=== PATIENT | male | born 1995 | race Caucasian/White ===

== ENCOUNTER → 2016-08-26 | Outpatient (CLI) | payer OTHER ==
[~2016-08-26] MED LIST: AMOX875T PO; HYDR1SOL30 PO; IBUP-1050 PO; PHEN-594 PO
[2016-08-26 18:10] LABS: ZZInitiateTest Complete
[2016-08-26 18:16] LABS: MANUAL MICROSCOPIC REQUIRED? NO; REVIEW REQ? NO
== END | disposition home or self-care (01) ==
LOC: C.LABPVFM 08:48
PROVIDERS: ATTEND Family Medicine
DX: R39.9 Unspecified symptoms and signs involving the genitourinary system (principal)

== ENCOUNTER → 2016-11-25 | Outpatient (CLI) | payer OTHER ==
[2016-11-28 13:34] LABS: CHLAMYDIA TRACH RNA*** NOT DETECTED (NOT DETECTED); GC (NEIS GONORRHOEAE)RNA** NOT DETECTED (NOT DETECTED)
== END | disposition home or self-care (01) ==
LOC: C.LABSPEC 17:06
PROVIDERS: ATTEND Nurse Practitioner Family
DX: R39.9 Unspecified symptoms and signs involving the genitourinary system (principal); Z11.3 Encounter for screening for infections with a predominantly sexual mode of transmission

== ENCOUNTER 2017-03-16 16:31 | Emergency (ER) | payer OTHER ==
[~2017-03-16] VITALS: Ht 188 cm; Wt 108.8 kg
[2017-03-16 16:39] VITALS: TEMP 36.9; Ht 188 cm; Wt 108.8 kg
--- NOTE | 2017-03-16 17:23 | EMERGENCY ROOM VISIT NOTE ---
History First contact with patient: 16:44 Chief Complaint: GI ASSESSMENT Stated Complaint: PAIN IN CHEST Nursing Triage Summary: pt states epigastric and chest pain with difficulty swallowing, pt states he has not been able to take much food by mouth for several days from the pain. Pt states overall not feeling well with ear pain. History of Present Illness The patient is a 21 year old male who presents to the Emergency Room with complaints of sternal chest burning/pressure. The patient reports that he first developed symptoms approximately 4 days ago. He states that the pain as a burning, tight pain in the center of his chest which radiates to his throat. The discomfort is constant and he rates the pain a 2/10. He saw his primary care this morning and was told it was probably GERD and started on Prilosec. He states the pain is aggravated by eating. The patient also reports that he has burning and itching in both of his ears as well as a mild cough which began 5 days ago. He has taken NyQuil for this. He denies sore throat or difficulty breathing. He denies any cardiac history or other medical problems. He does not smoke. He denies any family history of heart disease or gallbladder disease. Review of Systems A complete 10 point review of systems was reviewed with the patient with pertinent positives and negatives as per history of present illness. All else were negative. Past Medical/Surgical History Medical Problems: (1) Finger fracture, right (2) Laceration of finger nail bed Surgical Problems: (1) History of wisdom tooth extraction Family History Cancer Diabetes mellitus Hypertension Social History Smoking Status: Former Smoker Smokeless Tobacco Use: Yes Alcohol Use: occasionally Marital Status: single Housing Status: lives with family Occupation Status: employed Current/Historical Medications No Active Prescriptions or Reported Meds Physical Exam Vital Signs Date Time Temp Pulse Resp B/P (MAP) Pulse Ox O2 Delivery O2 Flow Rate FiO2 03/16/17 19:05 84 16 137/90 97 03/16/17 18:40 81 16 137/90 96 Room Air 03/16/17 16:39 36.9 102 16 131/91 97 Room Air Physical Exam VITALS: Vitals are noted on the nurse's note and reviewed by myself. Vital signs stable. GENERAL: This is a 21-year-old female, in no acute distress, nondiaphoretic, well-developed well-nourished. SKIN: The skin was without rashes. EARS: External auditory canals clear, tympanic membranes pearly meléndez without erythema or effusion bilaterally. EYES: Pupils equal round and reactive to light and accommodation. MOUTH: Mucous membranes moist. Tonsils are not enlarged. Pharynx without erythema or exudate. NECK: Supple without nuchal rigidity. No lymphadenopathy. HEART: Regular rate and rhythm without murmurs gallops or rubs. LUNGS: Clear to auscultation bilaterally without wheezes, rales or rhonchi. No retractions or accessory muscle use. ABDOMEN: Positive bowel sounds x 4. Soft, nondistended. There is tenderness to palpation in the epigastric region and right upper quadrant. No guarding or rebound tenderness. NEURO: Patient was alert and oriented to person place and time. Medical Decision & Procedures ER Provider Diagnostic Interpretation: CHEST ONE VIEW PORTABLE FINDINGS: Negative study IMPRESSION: Negative chest. ULTRASOUND RIGHT UPPER QUADRANT ABDOMEN IMPRESSION: 1. No acute sonographic abnormality is identified in the right upper quadrant. No gallstones are seen. 2. Hepatomegaly and hepatic steatosis. Laboratory Results 03/16/17 17:10 Red Blood Count 4.97, Mean Corpuscular Volume 86.1, Mean Corpuscular Hemoglobin 31.8, Mean Corpuscular Hemoglobin Concent 36.9 03/16/17 17:10 Test 03/16/17 17:10 03/16/17 17:35 White Blood Count 9.05 K/uL (4.8-10.8) Red Blood Count 4.97 M/uL (4.7-6.1) Hemoglobin 15.8 g/dL (14.0-18.0) Hematocrit 42.8 % (42-52) Mean Corpuscular Volume 86.1 fL (80-100) Mean Corpuscular Hemoglobin 31.8 pg (25-34) Mean Corpuscular Hemoglobin Concent 36.9 g/dl (32-36) Platelet Count 158 K/uL (130-400) Neutrophils % (Manual) 61.2 % Lymphocytes % (Manual) 15.5 % Variant Lymphocytes % (manual) 20.7 % Monocytes % (Manual) 2.6 % Neutrophils # (Manual) 5.54 K/uL (1.4-6.5) Total Absolute Neutrophils 5.54 K/uL (1.4-6.5) Lymphocytes # (Manual) 1.40 K/uL (1.2-3.4) Absolute Variant Lymphocytes 1.87 K/uL Total Absolute Lymphocytes 3.28 K/uL (1.2-3.4) Monocytes # (Manual) 0.24 K/uL (0.11-0.59) Red Blood Cell Morphology Unremarkable Anion Gap 9.0 mmol/L (3-11) Est Creatinine Clear Calc Drug Dose 135.9 ml/min Estimated GFR () 107.5 Estimated GFR (Non- 92.7 BUN/Creatinine Ratio 16.7 (10-20) Calcium Level 9.2 mg/dl (8.5-10.1) Total Bilirubin 1.5 mg/dl (0.2-1) Aspartate Amino Transf (AST/SGOT) 24 U/L (15-37) Alanine Aminotransferase (ALT/SGPT) 60 U/L (12-78) Alkaline Phosphatase 72 U/L (45-117) Troponin I < 0.015 ng/ml (0-0.045) Total Protein 7.9 gm/dl (6.4-8.2) Albumin 4.3 gm/dl (3.4-5.0) Globulin 3.6 gm/dl (2.5-4.0) Albumin/Globulin Ratio 1.2 (0.9-2) Lipase 90 U/L (73-393) Urine Color DK YELLOW Urine Appearance CLEAR (CLEAR) Urine pH 5.5 (4.5-7.5) Urine Specific [place] 1.031 (1.000-1.030) Urine Protein NEG (NEG) Urine Glucose (UA) NEG (NEG) Urine Ketones 2+ (NEG) Urine Occult Blood NEG (NEG) Urine Nitrite NEG (NEG) Urine Bilirubin NEG (NEG) Urine Urobilinogen NEG (NEG) Urine Leukocyte Esterase NEG (NEG) ECG Rate (beats per minute): 72 Rhythm: sinus with SA Findings: no acute ischemic change, no ectopy Change: no significant change Medical Decision Differential diagnosis includes acute coronary syndrome, pulmonary embolism, pneumothorax, pericarditis, myocarditis, endocarditis, anxiety, gallbladder disease, musculoskeletal pain, GERD, costochondritis, pneumonia, among others. The patient is a 21-year-old male who presents today complaining of chest discomfort. Labs revealed no leukocytosis, anemia or concerning electrolyte abnormalities. Troponin was not elevated. LFTs were within normal limits. EKG was interpreted by myself and showed a normal sinus rhythm with sinus arrhythmia. Gallbladder ultrasound was performed and did not show any evidence of gallbladder disease. The patient's symptoms seem consistent with GERD. Lifestyle changes were discussed with the patient. He was prescribed Prilosec by his primary care provider and was instructed to take this as prescribed. Based on the patient's presentation and work up, I feel the patient is stable for outpatient treatment. The patient was educated to return to the emergency department for any worsening of their current condition or new/concerning symptoms. He will follow up with his PCP. Medication Reconcilliation Current Medication List: was personally reviewed by me Blood Pressure Screening Patient's blood pressure: Normal blood pressure Impression Primary Impression: GERD (gastroesophageal reflux disease) Departure Information Dispostion Home / Self-Care Condition GOOD Prescriptions No Active Prescriptions or Reported Meds Referrals Sammie Clarke M.D. (PCP) Patient Instructions GERD Lifestyle Changes, My [facility] Additional Instructions You have been treated in the Emergency Department for your suspected Gastroesophageal Reflux Disease or GERD for short. Laboratory results and Imaging studies have ruled out any other emergent or surgical gastrointestinal issues. You should take Prilosec as prescribed. This is a drug that will help with any possible indigestion that might be contributing to your pain/discomfort. You should take this medicine EVERY day for the best results. This medicine is not intended to be used for immediate relief of symptoms, but rather to reduce the risk of recurrence of symptoms. You can consider using TUMS for relief of any indigestion that you might be experiencing. This drug is fast acting and can be used for immediate relief of your indigestion symptoms. You should eat a bland diet for the next few days. Some suggested bland dietary foods: Bananas, Rice, Applesauce, [place], or Boiled Chicken. These foods are easy to digest and help you to recover at a faster rate. All meals for the next few days should be small to blasting helper in bowel rest. For pain control, you can use the following [id number] medicines (if >12 yo): - Regular strength (325mg/tab) Tylenol (acetaminophen) 2 tabs every 4-6 hours as needed. Do not exceed 12 tablets in a 24 hour period. Avoid taking more than 4 grams (4000 mg) of Tylenol per day. This includes any other sources of acetaminophen you may take on a regular basis. You should schedule a follow-up appointment with your Primary Care Provider in 2 -3 days for further evaluation from today's Emergency Department visit. Your Primary Care Provider should be involved in the addition of any new medications. Your Primary Care Provider may also refer you to a Margin Analyst, a doctor who specializes in the digestive system. Return to the Emergency Department if your current symptoms worsen despite treatment course outlined above, or if you develop any of the following symptoms : worsening abdominal pain, associated chest or back pain, worsening nausea/ vomiting, dizziness, shortness of breath, blood in your vomit, or fainting.
[2017-03-16 17:36] LABS: ALBUMIN 4.3 gm/dl (3.4-5.0); ALT/SGPT 60 U/L (12-78); BLOOD UREA NITROGEN 19 mg/dl (7-18); CALCIUM 9.2 mg/dl (8.5-10.1); CARBON DIOXIDE 27 mmol/L (21-32); CREATININE 1.12 mg/dl (0.60-1.40); GLUCOSE 84 mg/dl (70-99); LIPASE 90 U/L (73-393); SODIUM 139 mmol/L (136-145)
--- NOTE | 2017-03-16 17:36 | DIAGNOSTIC IMAGING REPORT ---
CHEST ONE VIEW PORTABLE CLINICAL HISTORY: substernal pain pain COMPARISON STUDY: 03/16/2017 2:07 PM FINDINGS: Negative study IMPRESSION: Negative chest. The above report was generated using voice recognition software. It may contain grammatical, syntax or spelling errors. Electronically signed by: Alton Tiwari M.D. 03/16/2017 5:34 PM Dictated Date/Time: 03/16/2017 5:32 PM
[2017-03-16 17:41] LABS: ALKALINE PHOSPHATASE 72 U/L (45-117); AST/SGOT 24 U/L (15-37); TOTAL PROTEIN 7.9 gm/dl (6.4-8.2)
[2017-03-16 18:14] LABS: HEMATOCRIT 42.8 % (42-52); HEMOGLOBIN 15.8 g/dL (14.0-18.0); MEAN CELL VOLUME 86.1 fL (80-100); MEAN CORPUSCULAR HEMOGLOBIN 31.8 pg (25-34); MEAN CORPUSCULAR HGB CONC 36.9 g/dl (32-36); PLATELET COUNT 158 K/uL (130-400); WHITE BLOOD COUNT 9.05 K/uL (4.8-10.8)
--- NOTE | 2017-03-16 18:29 | DIAGNOSTIC IMAGING REPORT ---
ULTRASOUND RIGHT UPPER QUADRANT ABDOMEN CLINICAL HISTORY: Right upper quadrant abdominal pain. COMPARISON STUDY: No priors. TECHNIQUE: Real-time, grayscale, and color flow sonography of the right upper quadrant of the abdomen was performed. Images are reviewed in the transverse and longitudinal planes. FINDINGS: Liver: The liver is enlarged and demonstrates heterogeneously increased echotexture consistent with hepatic steatosis. Fatty sparing is seen adjacent to gallbladder fossa. There is no intrahepatic biliary ductal dilatation. The main portal vein is patent. Gallbladder: The gallbladder is normal in appearance. No gallstones are identified. There is no gallbladder wall thickening or pericholecystic fluid. A sonographic Almonte's sign is reportedly absent. The common bile duct measures up to 0.3 cm in diameter. Pancreas: Visualized portions of the pancreatic head and body are normal in appearance. The splenic vein is patent. Right kidney: Survey images of the right kidney demonstrate normal size and echotexture. There is no hydronephrosis. Ascites: None. IMPRESSION: 1. No acute sonographic abnormality is identified in the right upper quadrant. No gallstones are seen. 2. Hepatomegaly and hepatic steatosis. Electronically signed by: Quinten Collazo M.D. 03/16/2017 6:27 PM Dictated Date/Time: 03/16/2017 6:26 PM
[2017-03-16 19:05] VITALS: BP 137/90; PULSE 84; O2SAT 97
== END 2017-03-16 19:07 | disposition home or self-care (01) ==
LOC: C.EDB 16:32
DX: K21.9 Gastro-esophageal reflux disease without esophagitis (principal); R10.11 Right upper quadrant pain; R16.0 Hepatomegaly, not elsewhere classified; K76.0 Fatty (change of) liver, not elsewhere classified; Z87.891 Personal history of nicotine dependence

== ENCOUNTER → 2017-03-16 | Outpatient (CLI) | payer OTHER ==
--- NOTE | 2017-03-16 14:14 | DIAGNOSTIC IMAGING REPORT ---
CHEST 2 VIEWS ROUTINE CLINICAL HISTORY: Chest heaviness COMPARISON STUDY: 01/17/2015 FINDINGS: The cardiac and mediastinal contours are normal. There is no evidence of focal pulmonary consolidation. There is no evidence of failure. No pleural effusions are visualized.[ IMPRESSION: No active disease in the chest. Electronically signed by: Luis Castle M.D. 03/16/2017 2:13 PM Dictated Date/Time: 03/16/2017 2:13 PM
== END | disposition home or self-care (01) ==
LOC: C.RADPV 14:02
PROVIDERS: ATTEND Family Medicine
DX: R07.89 Other chest pain (principal)

== ENCOUNTER 2017-09-28 10:18 | Emergency (ER) | payer OTHER ==
[~2017-09-28] VITALS: Ht 189.9 cm; Wt 109.1 kg
[2017-09-28 10:21] VITALS: TEMP 36.8; Ht 189.9 cm; Wt 109.1 kg
[2017-09-28] MEDS ORDERED: LIDO/EPINEPHRINE/SOD BICARB 20 ML VIAL INFIL ONE (10:45)
--- NOTE | 2017-09-28 11:17 | DIAGNOSTIC IMAGING REPORT ---
L WRIST MIN 3 VIEWS ROUTINE CLINICAL HISTORY: LEFT, LACERATION RADIAL WRIST trauma. Pain. COMPARISON: None. DISCUSSION: The bones and joint spaces appear intact. There is no evidence of fracture, dislocation or bony disease. There is no evidence for soft tissue swelling. IMPRESSION: Negative study. The above report was generated using voice recognition software. It may contain grammatical, syntax or spelling errors. Electronically signed by: Alton Tiwari M.D. 09/28/2017 11:16 AM Dictated Date/Time: 09/28/2017 11:15 AM
[2017-09-28] MEDS ORDERED: CEPH500C PO (11:44)
--- NOTE | 2017-09-28 11:45 | EMERGENCY ROOM VISIT NOTE ---
ED Visit Note First contact with patient: 10:24 CHIEF COMPLAINT: Left wrist laceration at work 20 minutes ago n HISTORY OF PRESENT ILLNESS: Patient is a 21-year-old male, [id number], who presents the emergency department for evaluation of a laceration to the left wrist that he sustained at work just prior to arrival. He was using a hand -held saw to cut a 2 x 4. He states that the bleeding got stuck in the 2 x 4, and as he pulled it out, it jumped on him, striking him in the radial aspect of the left wrist, causing the laceration described below. He essentially held pressure with a bandage and came directly to the emergency department. He notes an aching pain at the site of the laceration that he rates a 4/10, and reports some numbness in the top of his thumb. He has some pain with movement of the thumb as well. REVIEW OF SYSTEMS: Review of systems as per HPI. All other systems reviewed were negative. At least 6 systems reviewed. PMH: Electronic medical records are reviewed and summarized as above/below. See Problem List. He reports that his tetanus is up-to-date. SOCIAL HISTORY: Patient lives at home. Smoker. Employed. PHYSICAL EXAM: Vital Signs: Reviewed Nurse's notes. CONSTITUTIONAL: Patient is a well-appearing 21-year-old male who is awake and alert and in no acute distress. INTEGUMENTARY: The patient has a 2 cm laceration on the radial aspect of the left wrist, over the anatomic snuffbox. He has tenderness to palpation over the site of the laceration, extending into the first metacarpal. He has diminished sensation to light touch between the first MCP and the IP joint. Flexion and extension of the thumb is full and strong at the MCP and the IP joint, but he has pain and weakness with resisted abduction. The edges are gaping apart. There are small white paint chips noted superficially in the wound. There is no active bleeding. Examination under anesthesia does reveal suspected tendinous structure noted at the base of the wound. EMERGENCY DEPARTMENT COURSE: X-rays of the left wrist were obtained and negative for acute bony abnormality. Using sterile technique, saline and Betadine cleansing, and 1% buffered lidocaine with epinephrine anesthesia, the laceration was repaired with 5-0 nylon sutures. The patient was placed in a thumb spica Ortho-Glass splint. Given the suspected tendinous injury he will be placed on Keflex, pending orthopedic evaluation. He was given a note to be out of work until he is seen and cleared to return by orthopedics. Differential diagnoses included fracture, laceration, nerve, vascular or tendinous injury, among others. Medication reconciliation: I attest that I have personally reviewed the patient' s current medication list. Blood pressure screening: Patient was found to have a slightly elevated blood pressure due to circumstances. I do not believe that the patient requires hypertension monitoring. L WRIST MIN 3 VIEWS ROUTINE CLINICAL HISTORY: LEFT, LACERATION RADIAL WRIST trauma. Pain. COMPARISON: None. DISCUSSION: The bones and joint spaces appear intact. There is no evidence of fracture, dislocation or bony disease. There is no evidence for soft tissue swelling. IMPRESSION: Negative study. Problem List Medical Problems: (1) Laceration of finger nail bed Status: Resolved Surgical Problems: (1) History of wisdom tooth extraction Status: Resolved Current/Historical Medications Scheduled Cephalexin Monohydrate (Keflex), 500 MG PO QID Allergies Coded Allergies: No Known Allergies (Verified , 12/25/02) Vital Signs Date Time Temp Pulse Resp B/P (MAP) Pulse Ox O2 Delivery O2 Flow Rate FiO2 09/28/17 12:16 64 18 141/73 100 09/28/17 10:21 36.8 62 18 158/72 100 Room Air Departure Information Impression Primary Impression: Laceration of wrist with tendon involvement Additional Impression: Work related injury Prescriptions Cephalexin Monohydrate (Keflex) 500 Mg Cap 500 MG PO QID, #40 CAP Prov: Janey Caceres PA 09/28/17 Referrals Sammie Clarke M.D. (PCP) Patient Instructions My [facility] Additional Instructions Cephalexin(Keflex) 500mg: Take one pill four times daily for 10 days to prevent infection. All antibiotics can cause diarrhea. If this occurs and you feel worse or it does not resolve in 1-2 days follow up with your doctor or return to the Emergency Department as this could be signs of serious underlying problems. Any medication can cause an allergic reaction, stop the pills immediately and return to the ER for rash, hives, breathing difficulties, or swelling. Ibuprofen(Motrin, Advil) may be used for fever or pain. Use 600mg every six hours as needed. Take with food. Avoid using more than 2400mg in a 24 hour period. Do not use 2400mg per day for more than three consecutive days without physician direction. Prolonged inappropriate use can lead to stomach upset or ulcers. This medication can be taken if you need to drive, work, or perform activities which may be dangerous when taking narcotic pain medication. (AND/OR) Acetaminophen(Tylenol) may be used for fever or pain. Use 1000mg every six hours as needed. Avoid using more than 3000mg in a 24 hour period. This medication can be taken if you need to drive, work, or perform activities which may be dangerous when taking narcotic pain medication. Rest and elevate your injury. Do not get the splint wet. If your splint feels excessively tight, you have worsening pain, develop numbness or tingling, or your digits appear blue, loosen the jackie wrap. Then reapply the jackie wrap gently without removing the splint. If your symptoms are not quickly relieved return to the ER for re- evaluation. Continue current medications. Return to the ER immediately for any numbness, tingling, severe pain, extreme swelling in the extremity or as needed. Follow-up with orthopedic surgery as arranged by your Worker's Compensation insurance for further care and management of your injury. Problem Qualifiers Primary Impression: Laceration of wrist with tendon involvement Encounter type: initial encounter Laterality: left Qualified Codes: S61.512A - Laceration without foreign body of left wrist, initial encounter; S66.922A - Laceration of unspecified muscle, fascia and tendon at wrist and hand level, left hand, initial encounter
[2017-09-28 12:16] VITALS: BP 141/73; PULSE 64; O2SAT 100
== END 2017-09-28 12:17 | disposition home or self-care (01) ==
LOC: C.EDB 10:19
DX: S61.522A Laceration with foreign body of left wrist, initial encounter (principal); S66.922A Laceration of unspecified muscle, fascia and tendon at wrist and hand level, left hand, initial encounter; W27.0XXA Contact with workbench tool, initial encounter; Y93.89 Activity, other specified; Y99.0 Civilian activity done for income or pay; F17.200 Nicotine dependence, unspecified, uncomplicated